=== PATIENT | male | born 1975 | race Caucasian/White ===

== ENCOUNTER 2016-06-04 20:37 | Emergency (ER) | payer OTHER ==
[~2016-06-04] VITALS: Ht 180.3 cm; Wt 81.8 kg
[~2016-06-04 20:37] MED LIST: AMOXICILLIN 50500 MG PO; FLEXERIL 1010 MG/TAB PO; NORCO 325 MG-51 TAB PO
[2016-06-04 20:39] VITALS: BP 124/91; TEMP 98.5
[2016-06-04 22:14] VITALS: PULSE 76
== END 2016-06-04 22:14 | disposition home or self-care (01) ==
LOC: COL.ER 20:37
DX: M20.012 Mallet finger of left finger(s) (principal)

== ENCOUNTER → 2017-09-25 | Outpatient (CLI) | payer OTHER ==
[2017-09-25 20:01] LABS: CALCIUM 10.3 mg/dL (8.4-10.2); CHOLESTEROL RISK RATIO 4.3; CREATININE, serum 0.88 mg/dL (0.66-1.25); POTASSIUM 4.9 mmol/L (3.4-5.0)
== END ==
LOC: ZLAB.FHCC 19:31
PROVIDERS: Emergency Medicine
DX: I10 Essential (primary) hypertension (principal)

== ENCOUNTER → 2017-10-21 | Outpatient (CLI) | payer OTHER ==
[2017-10-21 11:39] LABS: HEMATOCRIT 41.8 % (42.0-52.0); HEMOGLOBIN 14.3 g/dl (13.5-18.0)
[2017-10-21 11:44] LABS: CALCIUM 9.5 mg/dL (8.4-10.2); CREATININE, serum 0.8 mg/dL (0.66-1.25); POTASSIUM 4.5 mmol/L (3.4-5.0)
== END ==
LOC: ZCOL.LAB 11:17
PROVIDERS: Emergency Medicine
DX: Z01.89 Encounter for other specified special examinations (principal)

== ENCOUNTER 2019-08-23 11:19 | Emergency (ER) | payer SELFPAY ==
[~2019-08-23] VITALS: Ht 180.3 cm; Wt 81.8 kg
[2019-08-23 11:32] VITALS: TEMP 97.6
[2019-08-23 11:56] LABS: COLLECTION METHOD CLEAN CATCH
[2019-08-23 12:03] LABS: PH 5 (5-8); SQUAMOUS EPITHELIAL None Seen /hpf; URINE APPEARANCE Clear; URINE BACTERIA None Seen /hpf; URINE BILIRUBIN Negative (NEGATIVE); URINE BLOOD Negative (NEGATIVE); URINE COLOR Yellow; URINE GLUCOSE Negative (NEGATIVE); URINE KETONE Negative (NEGATIVE); URINE LEUKOCYTE ESTERASE Negative (NEGATIVE); URINE NITRATE Negative (NEGATIVE); URINE PROTEIN(semi-quant) Negative (NEGATIVE); URINE RBC 0-2 /hpf; URINE UROBILINOGEN Negative (NEGATIVE)
[2019-08-23] MEDS ORDERED: FLEXERIL 1010 MG/TAB PO (12:43)
[2019-08-23 12:45] VITALS: BP 128/76; PULSE 67
== END 2019-08-23 12:54 | disposition home or self-care (01) ==
LOC: COL.ER 11:19
PROVIDERS: Emergency Medicine
DX: S39.012A Strain of muscle, fascia and tendon of lower back, initial encounter (principal); X50.0XXA Overexertion from strenuous movement or load, initial encounter
CPT/HCPCS: J1170; J1885

== ENCOUNTER 2020-05-17 10:17 | Emergency (ER) | payer SELFPAY ==
[~2020-05-17] VITALS: Ht 180.3 cm; Wt 81.8 kg
[2020-05-17 10:36] VITALS: BP 99/55; TEMP 97.6
[2020-05-17] MEDS ORDERED: FLEXERIL 1010 MG/TAB PO (11:08)
[2020-05-17 11:28] VITALS: PULSE 95
[2020-11-04] MEDS ORDERED: LEVAQUIN 5500 MG/TA1 PO (15:39)
== END 2020-05-17 11:28 | disposition home or self-care (01) ==
LOC: COL.ER 10:17
DX: S46.812A Strain of other muscles, fascia and tendons at shoulder and upper arm level, left arm, initial encounter (principal); Z88.6 Allergy status to analgesic agent; X58.XXXA Exposure to other specified factors, initial encounter
CPT/HCPCS: J1885; J2360

== ENCOUNTER 2020-11-01 14:50 | Observation (INO) | payer OTHER ==
[~2020-11-01] VITALS: Ht 180.3 cm; Wt 79.5 kg
--- NOTE | 2020-11-01 07:30 | NUR ---
PATIENT CAME TO FLOOR AND IS ALERT AND ORIENTED X4. PATIENT TO BE NPO AT MIDNIGHT FOR EGD IN THE AM. PATIENT IS UNDER POLICE CUSTTODY. OFFICER AT BEDSIDE. PATIENT HAS IV TO RIGHT AC AND LEFT AC. PATIENT DENIES PAIN OR FURTHER NEEDS AT THIS TIME. CALL LIGHT WITHIN REACH. HEAD TO TOE ASSESSMENT COMPLETE.
[2020-11-01 15:05] LABS: BASO % 0.2 % (0.0-2.0); EOS # 0.2 (0.0-0.7); EOS % 1.1 % (0-4.0); GRAN # 11.5 (1.4-6.5); HEMOGLOBIN 11.7 g/dl (13.5-18.0); LYMPH # 2.5 (1.2-3.4); LYMPH % 16.4 % (20.0-51.0); MEAN CELL VOLUME 92 fl (80.0-100.0); MEAN CORPUSCULAR HEMOGLOBIN 31 pg (27.0-31.0); MEAN CORPUSCULAR HGB CONC 33 g/dl (33.0-37.0); MEAN PLATELET VOLUME 10.7 fl (7.4-10.4); MONO # 0.9 (0.1-0.6); MONO % 5.8 % (1.7-9.3); PLATELET COUNT 334 K/mm3 (130-400); RED BLOOD COUNT 3.82 M/mm3 (4.20-5.60); REDCELL DISTRIBUTION WIDTH-CV 12.7 % (11.5-14.5)
[2020-11-01 15:12] LABS: HEMATOCRIT 35.3 % (42.0-52.0)
[2020-11-01 15:22] LABS: ALANINE AMINOTRANSFERASE 18 U/L (4-49); ALBUMIN 3.7 gm/dL (3.5-5.0); ALKALINE PHOSPHATASE 56 U/L (50-136); ANION GAP 12 mmol/L (7-16); AST,SGOT 25 U/L (15-37); BILIRUBIN,TOTAL 0.1 mg/dL (0.0-1.0); BLOOD UREA NITROGEN 34 mg/dL (9-20); C-REACTIVE PROTEIN < 0.5 mg/dL (0.0-0.9); CALCIUM 8.8 mg/dL (8.4-10.2); CARBON DIOXIDE 22 mmol/L (22-30); CHLORIDE 105 mmol/L (98-107); CREATININE, serum 1.24 (0.66-1.25); GLUCOSE 244 mg/dL (74-106); LIPASE 57 U/L (23-300); POTASSIUM 4.1 mmol/L (3.4-5.0); SODIUM 138 mmol/L (137-145); TOTAL PROTEIN 6.4 gm/dL (6.4-8.2)
[2020-11-01 18:15] LABS: COLLECTION METHOD CLEAN CATCH
[2020-11-01 18:24] LABS: MUCOUS Present /lpf; PH 5 (5-8); SQUAMOUS EPITHELIAL None Seen /hpf; URINE APPEARANCE Clear; URINE BACTERIA None Seen /hpf; URINE BILIRUBIN Negative (NEGATIVE); URINE BLOOD 1+ (NEGATIVE); URINE COLOR Straw; URINE GLUCOSE 1+ (NEGATIVE); URINE KETONE Negative (NEGATIVE); URINE LEUKOCYTE ESTERASE Negative (NEGATIVE); URINE NITRATE Negative (NEGATIVE); URINE PROTEIN(semi-quant) Negative (NEGATIVE); URINE RBC 0-2 /hpf; URINE UROBILINOGEN Negative (NEGATIVE)
[2020-11-01 18:26] LABS: INR 1.2 (0.8-3.0); PROTHROMBIN TIME 12.8 SECONDS (9.7-12.8)
[2020-11-01 18:31] LABS: TRICYCLIC ANTIDEPRESS URINE NEGATIVE
[2020-11-01 19:42] VITALS: BP 114/80; PULSE 107; TEMP 98.5
[2020-11-01 21:17] VITALS: BP 126/68; PULSE 104; TEMP 98.3
[2020-11-01 22:52] LABS: HEMOGLOBIN 10.8 g/dl (13.5-18.0)
[2020-11-01 22:53] LABS: HEMATOCRIT 32.4 % (42.0-52.0)
[2020-11-02] VITALS (13 sets, daily range): BP systolic 116–137; BP diastolic 48–83; PULSE 74–103; TEMP 98.1–98.6
--- NOTE | 2020-11-02 06:26 | NUR ---
PATIENT DID WELL THROUGHOUT NIGHT. SLEPT MOST OF NIGHT. PATIENT SIGNED CONSENT FOR EGD AND COLONOSCOPY TODAY. PREOP FLUIDS HANGING ON BED. BOWEL PREP STARTED AT 0500. PATIENT DENIES PAIN OR FURTHER NEEDS AT THIS TIME. WILL REPORT TO DAY SHIFT.
[2020-11-02 07:48] LABS: BASO % 0.3 % (0.0-2.0); EOS # 0.1 (0.0-0.7); EOS % 1.1 % (0-4.0); GRAN # 6.1 (1.4-6.5); HEMOGLOBIN 10.4 g/dl (13.5-18.0); LYMPH % 22.5 % (20.0-51.0); MEAN CELL VOLUME 92 fl (80.0-100.0); MEAN CORPUSCULAR HEMOGLOBIN 30 pg (27.0-31.0); MEAN CORPUSCULAR HGB CONC 33 g/dl (33.0-37.0); MEAN PLATELET VOLUME 10.8 fl (7.4-10.4); MONO # 0.7 (0.1-0.6); MONO % 7.9 % (1.7-9.3); PLATELET COUNT 328 K/mm3 (130-400); RED BLOOD COUNT 3.42 M/mm3 (4.20-5.60); REDCELL DISTRIBUTION WIDTH-CV 12.9 % (11.5-14.5)
[2020-11-02 07:50] LABS: HEMATOCRIT 31.6 % (42.0-52.0)
[2020-11-02 08:01] LABS: CALCIUM 8.8 mg/dL (8.4-10.2); CREATININE, serum 0.87 (0.66-1.25); MAGNESIUM 1.7 mg/dL (1.6-2.3); POTASSIUM 3.7 mmol/L (3.4-5.0)
--- NOTE | 2020-11-02 10:00 | NUR ---
Patient alert and oriented, answers questions appropriately. See assessment. Abdomen soft, non tender, non distended. Bowel sounds active x4 quads. +Flatus. Reports no bloody stools. Awaiting EGD/colonoscopy. NPO. No c/o at this time.
--- NOTE | 2020-11-02 12:44 | NUR ---
Patient down to endo with surgical staff at this time.
--- NOTE | 2020-11-02 14:05 | NUR ---
Patient returns from Endo at 1355.
[2020-11-02 16:40] LABS: HEMATOCRIT 29.5 % (42.0-52.0); HEMOGLOBIN 9.6 g/dl (13.5-18.0)
--- NOTE | 2020-11-02 16:40 | NUR ---
electroplating worker confirms with officer present at bedside that the patient is in custody and will be returning to [facility] police station to complete his sentence. No social work intake assessment completed.
--- NOTE | 2020-11-02 20:00 | NUR ---
PATIENT ALERT AND ORIENTED X4. UP IN BED WATCHING TV. OFFICER AT BEDSIDE. PATIENT HAS IV INFUSING TO RIGHT AC AND INT IV TO LEFT AC. PATIENT SET TO DC IN AM. PATIENT ON GENERAL DIET AND TOLERATING WELL. PATIENT DENIES PAIN OR FURTHER NEEDS AT THIS TIME. CALL LIGHT WITHIN REACH. NO FURTHER NEEDS AT THIS TIME.
[2020-11-03 03:11] VITALS: BP 110/64; PULSE 90; TEMP 98.2
--- NOTE | 2020-11-03 06:23 | NUR ---
PATIENT DID WELL THROUGHOUT NIGHT. TOOK A SHOWER AND SLEPT THROUGH NIGHT. WILL BE DISCHARGED TODAY. NO FURTHER NEEDSS AT THIS TIME. CALL LIGHT WITHIN REACH. WILL REPORT TO DAY SHIFT.
[2020-11-03 07:27] VITALS: BP 123/73; PULSE 85; TEMP 98.7
[2020-11-03 08:20] LABS: BASO # 0.1 (0.0-0.2); BASO % 0.6 % (0.0-2.0); EOS # 0.2 (0.0-0.7); EOS % 2.5 % (0-4.0); GRAN % 61.6 % (42.2-75.2); LYMPH # 2.2 (1.2-3.4); MEAN CELL VOLUME 94 fl (80.0-100.0); MEAN CORPUSCULAR HGB CONC 33 g/dl (33.0-37.0); MEAN PLATELET VOLUME 11.5 fl (7.4-10.4); MONO # 0.6 (0.1-0.6); MONO % 7.9 % (1.7-9.3); PLATELET COUNT 272 K/mm3 (130-400); RED BLOOD COUNT 2.76 M/mm3 (4.20-5.60); REDCELL DISTRIBUTION WIDTH-CV 12.9 % (11.5-14.5)
[2020-11-03 08:28] LABS: HEMATOCRIT 25.8 % (42.0-52.0); HEMOGLOBIN 8.5 g/dl (13.5-18.0); MEAN CORPUSCULAR HEMOGLOBIN 31 pg (27.0-31.0)
[2020-11-03 08:29] LABS: CALCIUM 8.2 mg/dL (8.4-10.2); CREATININE, serum 0.85 (0.66-1.25); POTASSIUM 3.8 mmol/L (3.4-5.0)
[2020-11-03] MEDS ORDERED: BIAXIN 500MG T500 MG PO ×2 (08:58)
[2020-11-03] MEDS ORDERED: AMOXICILLIN 50500 MG PO (09:00)
[2020-11-03] MEDS ORDERED: PROTONIX 40MG T40 MG PO (09:02)
[2020-11-03] MEDS ORDERED: FERROUS SU325 MG/TAB PO (09:06)
--- NOTE | 2020-11-03 09:45 | NUR ---
Patient alert and oriented, answers questions appropriately. See assessment. Abdomen soft, non tender, non distended. Bowel sounds active x4 quads. +Flatus. No reported blood with bowel movements. No other c/o at this time.
--- NOTE | 2020-11-03 10:02 | NUR ---
Pt A/O x4. Speech clear and easily understood. Answer questions approp pleasant and cooperative. Patient denies pain/discomfort. Patient stated "good" formed bowel movement last night. Pt denied blood in stools. Call light within reach.
--- NOTE | 2020-11-03 10:19 | NUR ---
Discharge instructions reviewed with patient, verbalized understanding. Patient discharged with sailing officer via wheelchair at 1010.
[2020-11-04] MEDS ORDERED: LEVAQUIN 5500 MG/TA1 PO (15:39)
== END 2020-11-03 10:10 | disposition home or self-care (01) ==
LOC: COL.ER 14:50 → SURG 17:11
PROVIDERS: Nurse Practitioner; Physician Assistant; ADMIT Internal Medicine
DX: K92.1 Melena (principal); K31.89 Other diseases of stomach and duodenum; K26.9 Duodenal ulcer, unspecified as acute or chronic, without hemorrhage or perforation; D64.9 Anemia, unspecified; K57.31 Diverticulosis of large intestine without perforation or abscess with bleeding; K58.9 Irritable bowel syndrome, unspecified; D72.829 Elevated white blood cell count, unspecified; R00.0 Tachycardia, unspecified; R73.9 Hyperglycemia, unspecified; R91.1 Solitary pulmonary nodule; I95.9 Hypotension, unspecified; F17.200 Nicotine dependence, unspecified, uncomplicated; Z20.822 Contact with and (suspected) exposure to COVID-19; Z79.899 Other long term (current) drug therapy; Z87.11 Personal history of peptic ulcer disease
CPT/HCPCS: 99232-AI; C9113; G0378; J2704; J7030; Q9967